=== PATIENT | male | born 1960 | race Hispanic/Latino ===

== ENCOUNTER 2020-03-16 07:17 | Day surgery (SDC) | payer OTHER ==
[2020-02-27 09:12] LABS: BASOPHILS % (AUTO) 0.7 % (0.0-5.0); EOSINOPHILS % (AUTO) 4.1 % (0.0-8.0); HEMATOCRIT 44.2 % (42-54); LYMPHOCYTES % (AUTO) 32.6 % (21.0-51.0); MEAN CORPUSCULAR HEMOGLOBIN 30.4 pg (27.0-33.0); MEAN CORPUSCULAR HGB CONC 34.2 g/dL (32.0-36.0); MEAN CORPUSCULAR VOLUME 89.1 fL (79-99); MONOCYTES % (AUTO) 8.7 % (3.0-13.0); NEUTROPHILS % (AUTO) 53.8 % (40.0-77.0); PLATELET COUNT (AUTO) 177 K/uL (130-400); RED BLOOD CELL COUNT(AUTO) 4.96 MIL/uL (4.50-6.20); WHITE BLOOD COUNT (AUTO) 7.2 K/uL (4.8-10.8)
[2020-02-27 09:22] LABS: CREATININE 1.3 mg/dL (0.5-1.5)
[2020-03-13 08:54] VITALS: BP 157/74
--- NOTE | 2020-03-13 09:48 | NUR ---
ABNORMAL LA B: DR. MORALES NOTIFIED OF COVID POSITIVE ON 02/27/20. NOTIFY JOCELYN ARANDA AT [facility] IF SURGERY CAN PROCEED SINCE PATIENT HAS BEEN QUARANTINED FOR 15 DAYS.
--- NOTE | 2020-03-13 12:00 | NUR ---
COVID RESULTS: SPOKE TO MICKIE AT [facility] REGARDING PATIENT TESTING POSITIVE FOR COVID ON 02/27/20. PT. HAS BEEN QUARANTINED FOR 15 DAYS, PT ASYMPTOMATIC AND DR. MORALES WANTING TO KNOW IF OK TO PROCEED WITH SURGERY. OK TO PROCEED WITH SURGERY.
--- NOTE | 2020-03-13 12:03 | NUR ---
SURGERY: DR. MORALES MADE AWARE OF PT OK TO PROCEED WITH SURGERY STATED PER MICKIE AT [facility].
[~2020-03-16] VITALS: Ht 166.4 cm; Wt 92.5 kg
[2020-03-16] VITALS (17 sets, daily range): BP systolic 117–171; BP diastolic 76–98
[~2020-03-16 07:17] MED LIST: CEFAZOLIN SODIUM 1 GM VIAL IVP SCH; EZET1TAB26 PO
[2020-03-16] MEDS ORDERED: SODIUM CHLORIDE 0.9% 1000ML 1,000 ML IV ONE (09:00)
[2020-03-16] MEDS ORDERED: LIDOCAINE PF 2% 5ML ABBOJECT ONE ×2 (09:46→13:02)
[2020-03-16] MEDS ORDERED: ONDANSETRON HCL 4 MG/2 ML VIAL ONE (09:47)
[2020-03-16] MEDS ORDERED: MIDAZOLAM HCL 1 MG/ML 2ML VIAL ONE ×2 (09:47→11:14)
[2020-03-16] MEDS ORDERED: PROPOFOL 10 MG/ML 20ML VIAL IV ONE (09:47)
[2020-03-16] MEDS ORDERED: DEXAMETHASONE SOD PHOSPHATE 10MG/ML 1ML VIAL ONE (09:47)
[2020-03-16] MEDS ORDERED: FENTANYL CITRATE PF 50 MCG/1 ML 2ML VIAL ONE ×2 (09:48→12:09)
[2020-03-16] MEDS ORDERED: SUCCINYLCHOLINE CHLORIDE 20 MG/ML 10 ML VIAL ONE (09:48)
[2020-03-16] MEDS ORDERED: PHENYLEPHRINE HCL 10 MG/ML 1ML VIAL IV ONE (11:44)
[2020-03-16] MEDS ORDERED: CEFAZOLIN SODIUM 1 GM VIAL ONE (12:00)
[2020-03-16] MEDS ORDERED: ROPIVACAINE 0.5% 5MG/ML 30ML IJ ONE (12:31)
[2020-03-16] MEDS ORDERED: KETOROLAC TROMETHAMINE 30MG/ML ONE (12:56)
[2020-03-16] MEDS ORDERED: IBUP-2077 PO (13:24)
[2020-03-16] MEDS ORDERED: CEPH500B PO (13:24)
[2020-03-16] MEDS ORDERED: HYDR-4457 PO (13:24)
== END 2020-03-16 15:39 | disposition home or self-care (01) ==
LOC: DAH 07:17 → EDSTATUS 07:45 → DAH 15:39
PROVIDERS: ATTEND Orthopaedic Surgery
DX: S83.512A Sprain of anterior cruciate ligament of left knee, initial encounter (principal); U07.1 COVID-19; M94.262 Chondromalacia, left knee; Z98.890 Other specified postprocedural states; Z88.8 Allergy status to other drugs, medicaments and biological substances; Z79.899 Other long term (current) drug therapy; Z87.891 Personal history of nicotine dependence; Y99.0 Civilian activity done for income or pay; X58.XXXA Exposure to other specified factors, initial encounter
CPT/HCPCS: 29888; 36415; 64447; 76942; 80048; 82948 ×2; 85025; A4215; A4221; A4222; A4223; A4600; A4649 ×4; A4663; A4930; A6223; C1713; C1762; C1776; C9803; J0330; J0690 ×2; J1100; J1885; J2001 ×2; J2250 ×2; J2370; J2405; J2704; J2795; J3010 ×2; J7030 ×2; U0003